=== PATIENT | female | born 1980 | race Two or more races ===

== ENCOUNTER 2024-03-06 21:59 | Inpatient (IN) | payer OTHER, SELFPAY ==
[2024-03-06 22:00] VITALS: BMI 34.0
[2024-03-06 22:19] VITALS: BP 141/90; PULSE 92; RESP 18; TEMP 37.2; O2SAT 95
--- NOTE | 2024-03-06 22:30 | EKG_ITS ---
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
--- NOTE | 2024-03-06 22:30 | XR_ITS ---
Examination: PA lateral chest 2 views Technique: Upright PA lateral chest 2 views Exam date and time: March 06, 2024 1042 hrs. Indications: Chest pain shortness of breath this week Findings: Extensive bilateral lung opacity, severe in the left lung Mild enlargement cardiac contour Significant vascular congestion Suspicious for mild to moderate bilateral pleural effusions Intact osseous structures Impression: Extensive bilateral pneumonia Suspicious for mild associated heart failure
--- NOTE | 2024-03-06 22:30 | PD.EDRME ---
Rapid Medical Screening Exam [facility] Arrival date/time: 03/06/24 21:59 43F with no significant PMH presents to ED with 1 week of worsening cough and SOB. Patient was initially seen for this at [facility] and diagnosed with PNA. Patient was given ABX, unclear if amoxicillin or Augmentin. Patient states she doesn't feel any different. She was also diagnosed with new-onset CHF w/o echo. Cocci pending at time of DC. Chief Complaint: Flu Like Symptoms Vital signs: Vital Signs Temperature 98.9 F 03/06/24 22:19 Pulse Rate 92 03/06/24 22:19 Respiratory Rate 18 03/06/24 22:19 Blood Pressure 141/90 H 03/06/24 22:19 Pulse Oximetry (%) 95 03/06/24 22:19 Oxygen Delivery Method Room Air 03/06/24 22:19
[2024-03-06 22:57] LABS: Basophils % (Auto) 0 % (0-2.5); Eosinophils # (Auto) 0.2 Thou/mm3 (0.0-0.5); Eosinophils % (Auto) 2 % (0-10); Hematocrit 35.7 % (36.0-46.0); Hemoglobin 12.1 g/dL (12.0-16.0); Immature Granulocytes % (Auto) 0 % (0-0); Immature Granulocytes Auto 0.04 Thou/mm3 (0.00-0.00); Lymphocytes # (Auto) 2.3 Thou/mm3 (1.0-4.8); Lymphocytes % (Auto) 22 % (10-50); Mean Corpuscular HGB Conc 33.9 g/dl (31.0-37.0); Mean Corpuscular Volume 88 fL (80-100); Monocytes # (Auto) 0.6 Thou/mm3 (0.0-0.8); Monocytes % (Auto) 6 % (0-12); Neutrophils # (Auto) 7.3 Thou/mm3 (1.8-7.7); Neutrophils % (Auto) 70 % (37-80); Nucleated Red Blood Cell % 0 /100 WBC (0); Platelet Count 353 Thou/mm3 (140-440); RDW Standard Deviation 39.8 fL (36.4-46.3); Red Blood Count 4.04 Miln/mm3 (4.00-5.20); White Blood Count 10.4 Thou/mm3 (3.6-11.0)
[2024-03-06 23:20] LABS: B-Type Natriuretic Peptide < 20 pg/mL (0-100)
[2024-03-06 23:34] LABS: Troponin I < 0.002 ng/mL (0.0-0.045)
[2024-03-06 23:38] LABS: Alanine Aminotransferase 90 U/L (10-49); Albumin, Serum 4.6 gm/dL (3.5-5.0); Albumin/Globulin Ratio 1.4 (1.2-2.2); Alkaline Phosphatase 414 U/L (46-116); Anion Gap 10 (7-16); Aspartate Amino Transferase 66 U/L (0-34); BUN/Creatinine Ratio 15 Ratio (12-20); Bilirubin,Total 1.2 mg/dL (0.3-1.2); Blood Urea Nitrogen 9 mg/dL (9-23); Calcium 9.8 mg/dL (8.3-10.6); Calcium (Corrected) 9.8 mg/dL (8.5-10.1); Carbon Dioxide 26.6 mMol/L (20.0-31.0); Chloride 102 mMol/L (98-107); Creatinine (Component) 0.6 mg/dL (0.6-1.3); Estimated Creatinine Clearance 121.8 mL/min (>60); Globulin 3.4 gm/dL (2.3-3.5); Glucose 106 mg/dL (74-106); Osmolality,Calculated 276 (275-295); Potassium 4.1 mMol/L (3.4-5.1); Sodium 139 mMol/L (136-145); eGFR > 60 See Note
[2024-03-07 06:08] LABS: INR 0.9 (0.9-1.3); Partial Thromboplastin Time 26.9 Seconds (22.0-36.0); Prothrombin Time 9.8 Seconds (9.0-12.2)
--- NOTE | 2024-03-07 07:18 | PC.NURSE ---
CAME TO TRIAGE DESK TO SAY I'VE BEEN HERE SINCE LAST NIGHT AND NO ONE HAS TALKED WITH ME ABOUT MY RESULTS. APOLIGIZED TOPT AND INFORMED THAT NURSE WILL INFORM PROVIDER AND HAVE SOMEONE REVIEW THE RESULTS SOON POSSIBLE
[2024-03-07 08:00] VITALS: BP 130/83; PULSE 82; RESP 18; TEMP 37.1; O2SAT 95
--- NOTE | 2024-03-07 09:19 | PD.EDURI ---
Upper Respiratory Inf. RME/HPI General Chief Complaint: Flu Like Symptoms Stated Complaint: COUGH /SOB X 5DAYS Time Seen by Provider: 03/07/24 03:04 Arrival date/time: 03/06/24 21:59 RME / HPI RME / HPI Narrative: DR. ARZATE MAIN ED EVALUATION: 43 year old female with no past medical history presents to the Emergency Department with complaints of worsening shortness of breath and a persistent cough. Symptoms are moderate. Patient was initially seen for this at [facility] and diagnosed with PNA. Patient was given antibiotics but it is unclear if it was amoxicillin or Augmentin. Patient states she doesn't feel any different. She was also diagnosed with new-onset CHF w/o echo. Cocci pending at time of DC. Related Data Allergies Allergy/AdvReac Type Severity Reaction Status Date / Time No Known Allergies Allergy Verified 03/06/24 22:02 Review of Systems Review of Systems Systems Reviewed: All systems reviewed, normal except as documented Narrative Review of Systems: GEN: No fever, no chills, no weight loss EYES: No discharge, no visual changes, no pain HEENT: No ear pain, no congestion, no sore throat PULM: + shortness of breath, + cough CV: No chest pain, no dyspnea on exertion, no palpitations GI: No nausea, no vomiting, no diarrhea, no pain, no constipation : No frequency, no urgency and no dysuria MUSC/SKEL: No joint pain, no back pain SKIN: No rash PSYCH: No hallucinations, no depression HEME/LYMPH: No easy bleeding or bruising tendencies NEURO: No weakness, no headache Past Medical History Social History SMOKING STATUS: Never smoker SUBSTANCE USE: does not use ALCOHOL: Never ED Exam Narrative Physical exam: GENERAL APPEARANCE: alert and oriented x 4, well-developed, well-nourished, no acute distress VITALS: All vitals were reviewed and the pulse ox is 93% on room air, which is normal according to my interpretation. HEENT: Normocephalic, atraumatic; pupils equal, round, reactive to light; EOMI; mucous membranes pink, moist; oropharynx clear NECK: Supple LUNGS: CTABL; no wheezes, no rales, no rhonchi HEART: Regular rate, regular rhythm; normal S1, S2; no murmurs ABDOMEN: non distended; normal BS; soft, no tenderness, no guarding, no rebound; no masses, no organomegaly, no hernia BACK: no CVA tenderness EXTREMITIES: atraumatic; no edema NEUROLOGIC: awake; alert and oriented x4; cranial nerves II-XII grossly intact; no focal sensory or motor deficits PSYCHIATRIC: appropriate mood and affect SKIN: warm, dry, normal color; no rashes Course Quality Measures none Orders Category Date Time Status Bedside Influenza A&B Antigen Test NOW Care 03/06/24 22:05 Completed EKG (ED ONLY) *Do not use* NOW Care 03/06/24 22:[address] chest wo con Stat Exams 03/07/24 09:18 Completed EKG (ED Only) Stat Exams 03/06/24 22:30 Draft XR chest 2V Stat Exams 03/06/24 22:30 Completed B-Type Natriuretic Peptide Stat Lab 03/06/24 22:37 Completed Blood Culture (Lab) Stat Lab 03/07/24 09:20 Received CBC Stat Lab 03/06/24 22:37 Completed Cocci Serology IgM with reflex to IgG [Cocci Serology, Lab 03/07/24 09:30 Results Unk History] Stat Comprehensive Metabolic Panel Stat Lab 03/06/24 22:37 Completed Lactate (Lactic Acid) Stat Lab 03/07/24 09:30 Completed Legionella Ag, EIA, Urine* Stat Lab 03/07/24 10:01 Received Magnesium Stat Lab 03/06/24 22:37 Completed Partial Thromboplastin Time Stat Lab 03/06/24 22:37 Completed Procalcitonin Stat Lab 03/07/24 09:30 Completed Prothrombin Time with INR Stat Lab 03/06/24 22:37 Completed Troponin I Stat Lab 03/06/24 22:37 Completed Urinalysis Stat Lab 03/07/24 10:01 Completed Urine Culture Stat Lab 03/07/24 10:01 Received Azithromycin Inj [Zithromax Inj] 500 mg Med 03/07/24 14:24 Discontinued Sodium Chloride 0.9% 250 ml [Ns] 250 ml IV X1 cefTRIAXone/D5w 1gm IV premix [Rocephin/D5w 1gm IV Med 03/07/24 14:24 Discontinued premix] 50 ml IV X1 Vital Signs Vital signs: Vital Signs Temperature 98.9 F 03/06/24 22:19 Pulse Rate 92 03/06/24 22:19 Respiratory Rate 18 03/06/24 22:19 Blood Pressure 141/90 H 03/06/24 22:19 Pulse Oximetry (%) 95 03/06/24 22:19 Oxygen Delivery Method Room Air 03/06/24 22:19 Upper Respiratory Infection Patient data External records reviewed:: [facility] previous records (Reviewed last ED visit dated 03/06/24, discharged with the following: intractable pain.) Clinical information provided by:: patient Social determinants that could affect healthcare access:: none Patient has the following chronic illnesses:: Denies any PMHx, surgeries, daily medications, or known allergies. How is presenting disease/condition affected by chronic disease/condition?: no chronic disease Evaluation data The following diagnostics were reviewed and interpreted by me:: lab results, radiology exam(s) and EKG tracing(s) (sinus rhythm, rate 95, QTc 453,) Lab and/or radiology exams considered but not ordered:: none Interpretation Summary: Procedure(s): CT chest wo con Accession Number(s): [id number] cc: Deniz Rider MD; NO PRIMARY/FAMILY,PHYSICIAN; Britney Arzate MD~ Examination: CT chest, without intravenous contrast. Sagittal and coronal 2-D reconstructions. Exam date and time: March 07, 2024 1052 hours INDICATIONS: Increasing chest pain shortness of breath beginning 2 days ago, extensive bilateral pneumonia on chest film yesterday CTDI:vol (mGy) 15.6 DLP: (mGycm) 573 Technique: Multiple 3.0 mm axial sections of the chest to been obtained. Bone and lung density settings are obtained. Sagittal and coronal 2-D reconstructions have been obtained. Low dose protocols were performed. One or more of the following dose reduction techniques were used; automated exposure control, adjustment of the mA and/or KV according to patient size, use of iterative reconstruction technique. Findings: No thoracic aortic aneurysm dilatation Pulmonary artery segments do not appear enlarged Pericardial effusion on the right side measuring up to 20 mm in thickness Mild prominence left ventricle Extensive bilateral lung opacity consistent with pneumonia, multiple subcentimeter right lung pulmonary nodules, the largest 6 mm Moderate left mild right pleural fluid No focal visualized liver lesion Contracted gallbladder No splenic or pancreatic lesion Kidneys partially visualized no hydronephrosis Multiple osteolytic lesions involving thoracic vertebral bodies as well as the manubrium of the sternum as well as bilateral ribs IMPRESSION: Extensive bilateral pneumonia Significant pericardial effusion Recommend repeating this study with intravenous contrast to exclude mediastinal lymphadenopathy as well as to exclude pulmonary mass lesion in the left upper lobe Moderate left mild right pleural fluid Widespread osteolytic lesions, consider osseous metastatic disease, round cell tumor such as multiple myeloma Consider PET CT scan follow-up for staging Consider MRI thoracic cervical and lumbar spine post intravenous contrast follow-up to exclude spinal cord compression, as clinically warranted Dictated By: Deniz Rider MD Procedure(s): XR chest 2V Accession Number(s): [id number] cc: Deniz Rider MD; Logan Calderón PA-C; Temporary Provider,ED ~ Examination: PA lateral chest 2 views Technique: Upright PA lateral chest 2 views Exam date and time: March 06, 2024 1042 hrs. Indications: Chest pain shortness of breath this week Findings: Extensive bilateral lung opacity, severe in the left lung Mild enlargement cardiac contour Significant vascular congestion Suspicious for mild to moderate bilateral pleural effusions Intact osseous structures Impression: Extensive bilateral pneumonia Suspicious for mild associated heart failure Dictated By: Deniz Rider MD Medications / Prescriptions Medications or Prescriptions considered but not ordered:: none Medication administrations:: Medication Administration History Acetaminophen (Acetaminophen 325 Mg Tablet) 650 mg PO Q6H PRN PRN Reason: Fever >101.5 Stop: 04/06/24 15:17 Acetaminophen (Acetaminophen 325 Mg Tablet) 650 mg PO Q6H PRN PRN Reason: PAIN SCALE 1-3 (mild Stop: 04/06/24 15:17 Hydrocodone Bitart/Acetaminophen (Hydrocodone/Apap 10/325 Tab) 1 tab PO Q4H PRN PRN Reason: PAIN SCALE 4-6 (Moderate Stop: 03/12/24 15:17 Hydromorphone HCl (Hydromorphone Inj 2 Mg/Ml Vial) 1 mg IVP Q4HR PRN PRN Reason: PAIN Stop: 03/12/24 15:17 Ceftriaxone Sodium/Dextrose (Rocephin/D5w 1gm Iv Premix) 50 mls @ 100 mls/hr IV QDAY [facility] Stop: 03/15/24 08:59 Azithromycin 500 mg/ Sodium (Chloride) 250 mls @ 250 mls/hr IV QDAY ANSELMO Stop: 03/15/24 08:59 Ondansetron HCl (Ondansetron Inj 2 Mg/Ml Inj 2 Ml) 4 mg IV Q6H PRN; Protocol PRN Reason: NAUSEA OR VOMITING Stop: 04/06/24 15:17 Discontinued Medications Enoxaparin Sodium (Enoxaparin Sod Inj 40 Mg/0.4 Ml Syringe) 40 mg SC QDAY ANSELMO Stop: 03/21/24 15:29 Ceftriaxone Sodium/Dextrose (Rocephin/D5w 1gm Iv Premix) 50 mls @ 100 mls/hr IV X1 ONE Stop: 03/07/24 14:53 Azithromycin 500 mg/ Sodium (Chloride) 250 mls @ 250 mls/hr IV X1 ONE Stop: 03/07/24 15:23 see above Consultations Consultation(s) initiated? (list below): Yes Consultation #1 (Physician, Specialty, Details): Discussed test HPI, PMHx, lab, radiology results and/or management with hospitalist. Will admit for further evaluation and management. Accepts patient for admission. Time: 15:15 Diagnosis Upper Respiratory Differential Diagnosis: upper respiratory infection, viral infection and influenza Most likely diagnosis given after review of the tests above:: As noted below. Admission Indicated Admission indicated?: indicated Admission Request Was there a request for admission?: Yes Admission Attestation Admission request attestation: Discussed case with [] from Hospitalist service regarding admission. Discussed patients ED course, exam findings, labs, and radiology results. The Hospitalist [agrees,declines] to accept the patient for admission. Disposition Plan Disposition Plan: Admit
[2024-03-07 09:43] LABS: Lactate (Lactic Acid) 0.8 mMol/L (0.4-2.0)
[2024-03-07 10:11] LABS: Collection Type, Urine Clean Catch
[2024-03-07 10:16] LABS: Bilirubin,Urine Negative (Negative); Blood,Urine Negative (Negative); Color,Urine Yellow (Lt Yel-Yel); Glucose, Urine Negative (Negative); Ketones,Urine Negative (Negative); Leukocyte Esterase,Urine Positive (Negative); Nitrite,Urine Negative (Negative); Protein,Urine Trace (Neg - Trace); RBC,Urine 10 /hpf (0-3); Specific Gravity,Urine 1.022 (1.001-1.035); Squamous Epithelial Cell,Urine 4 /hpf (0-5); Urobilinogen,Urine Negative mg/dL (0.0-1.0); WBC,Urine 3 /hpf (0-5)
[2024-03-07 10:22] LABS: Procalcitonin 0.06 ng/ml (0.0-0.49)
[2024-03-07 10:39] LABS: Clarity,Urine Hazy (Clear/Hazy)
[2024-03-07 14:01] LABS: Cocci Serology, IgM Negative (Negative)
--- NOTE | 2024-03-07 15:18 | ECHO_ITS ---
Transthoracic Echo Report Ht (in): 62 Wt (lb): 186 Exam Location: ER Status: Emergency Instrumentation Supervisor: Lu Ross Indications: Procedure Performed: BP: 130 / 83 HR: 82 Rhythm: Sinus Technical Quality: Fair MEASUREMENTS (Male / Female) Normal Values 2D ECHO LV Diastolic Diameter PLAX 4.8 cm 4.2 - 5.9 / 3.9 - 5.3 cm LV Systolic Diameter PLAX 3.2 cm IVS Diastolic Thickness 0.9 cm 0.6 - 1.0 / 0.6 - 0.9 cm LVPW Diastolic Thickness 0.7 cm 0.6 - 1.0 / 0.6 - 0.9 cm LV Relative Wall Thickness 0.3 LVOT Diameter 2.1 cm LA Volume Index 24.8 cm?/m? 16 - 28 cm?/m? Ascending Aorta Diameter 3.2 cm M-MODE Aortic Root Diameter MM 3.1 cm LA Systolic Diameter MM 3.9 cm LA Ao Ratio MM 1.3 AV Cusp Separation MM 1.9 cm DOPPLER AV Peak Velocity 141.0 cm/s AV Peak Gradient 8.0 mmHg AV Mean Gradient 4.0 mmHg AV Velocity Time Integral 26.2 cm LVOT Peak Velocity 118.0 cm/s LVOT Peak Gradient 5.6 mmHg LVOT Velocity Time Integral 21.9 cm LVOT Cardiac Index 3176.4 cm?/min?m? AV Area Cont Eq vti 2.9 cm? AV Area Cont Eq pk 2.9 cm? MV Peak Velocity 83.2 cm/s MV Peak Gradient 2.8 mmHg MV Mean Velocity 57.9 cm/s MV Mean Gradient 2.0 mmHg MV Area PHT 4.1 cm? Mitral E Point Velocity 66.5 cm/s Mitral A Point Velocity 79.5 cm/s Mitral E to A Ratio 0.8 LV E' Lateral Velocity 7.7 cm/s Mitral E to LV E' Lateral Ratio 8.6 LV E' Septal Velocity 6.7 cm/s Mitral E to LV E' Septal Ratio 9.9 FINDINGS Left Ventricle Normal left ventricular size, wall thickness, systolic function with no obvious regional wall motion abnormalities. The ejection fraction is visually estimated at 55-60%. Right Ventricle The right ventricle is normal in size and systolic function. Left Atrium The left atrium is normal by two-dimensional, color flow and Doppler imaging with no structural abnormalities, no thrombus formation present. Right Atrium The right atrium is normal by two-dimensional imaging, color flow and Doppler imaging with no struct ural abnormalities, no thrombus formation present. Atrial Septum The interatrial septum appears normal with no evidence of a shunt. Aorta The aorta is normal by two-dimensional, color flow and Doppler interrogation. Mitral Valve The mitral valve is normal by two-dimensional, color flow and Doppler interrogation. There is trace mitral valve regurgitation. Aortic Valve The aortic valve is trileaflet and normal by two-dimensional, color flow and Doppler interrogation. There is no significant aortic valve regurgitation. Tricuspid Valve The tricuspid valve is normal by two-dimensional, color flow and Doppler interrogation. There is tra ce tricuspid valve regurgitation. Pulmonic Valve The pulmonic valve is not well visualized. There is no significant pulmonic valve regurgitation. Vessels The pulmonary artery appears normal. The inferior vena cava pulmonary and hepatic veins appear pedro l. Pericardium The pericardium is normal by two-dimensional imaging. There is a small circumferential pericardial effusion. No evidence of cardiac tampoande. Other Findings Pleural effusion present. CONCLUSIONS Normal LV size and function. Estimated EF 55-60% Normal RV size and function. There is a small circumferential pericardial effusion. Not enough to warrant intervention No evidence of cardiac tampoande. Pleural effusion present. Cherri Snow (Electronically Signed) Final Date: 07 March 2024 20:23
--- NOTE | 2024-03-07 15:27 | ESHP_ITS ---
<Statement entered by Jamie Baptiste MD - 03/12/24 14:16> I reviewed above note and agree with findings and plans. I have also personally examined the patient with medicine team and went over assessment and plan with medical team including global marketing intern and resident physician. Documentation for date of: 03/07/24 HPI History of Present Illness History of present illness: 43-year-old female without significant past medical history who presented to the ED with a chief complaint of severe thoracic pain. Patient states that for the past 2 months she has been having dry cough that has progressively been worsening, during this time she has also has had progressively worsening body pain and weakness, predominantly on legs, spine, ribs. Patient denies night sweats, or fever. Approximately 1 week ago after an episode of severe coughing. She felt severe left-sided thoracic pain and mid back pain. Patient describes pain as severe 10 out of 10, worsens with deep inspiration and limits her breathing, she is unable to lay flat, and is barely able to move. Due to the symptoms patient went to a hospital in [place] where she got an injection for pain without symptom relief. Due to patient's symptoms not going away and worsening she decided to come to the ED. Patient has also noticed loss of appetite and weight loss, however she has been under Ozempic for weight loss she as she was scheduled to have a knee replacement surgery. ED course: On arrival patient's vitals within normal limits, saturating adequately on room air, pertinent labs: Alkaline phosphatase 414, AST 66, ALT 90. Rest of labs within normal limits. CT chest was done which showed: Extensive bilateral pneumonia, significant pericardial effusion, Recommend repeating this study with intravenous contrast to exclude mediastinal lymphadenopathy as well as to exclude pulmonary mass lesion in the left upper lobe. Moderate left mild right pleural fluid. Widespread osteolytic lesions, consider osseous metastatic disease, round cell tumor such as multiple myeloma. Consider PET CT scan follow-up for staging. Consider MRI thoracic cervical and lumbar spine post intravenous contrast follow-up to exclude spinal cord compression, as clinically warranted. Patient will be admitted for management of intractable pain, likely in the setting of malignancy. PMH: As above Social: No alcohol tobacco or drugs Review of Systems Review of Systems Systems Reviewed: All systems reviewed, normal except as documented Exam Vital Signs Temp Pulse Resp BP Pulse Ox O2 Del Method 98.7 F 82 18 130/83 95 Room Air 03/07/24 08:00 03/07/24 08:00 03/07/24 08:00 03/07/24 08:00 03/07/24 08:00 03/07/24 08:00 Narrative Exam GENERAL: Awake, alert and oriented. In distress due to pain, unable to take deep breaths HEENT: Normocephalic, atraumatic and nontender.? Pupils are equal and reactive to light and accommodation.? Oral mucosa moist. NECK: Supple without adenopathy. Traquea midline. Nontender, carotid pulse 2+ bilaterally without bruits, no JVD.? CHEST: Heart rate and rythm normal, no murmurs, gallops auscultated. S1 & 2 normal insensity. Nontender on palpation, no deformity and no crepitus. LUNGS: Lung sounds are clear.? No wheezing, rales or ronchi.? No intercostal subcostal retraction. Room air ABDOMEN: Soft,symmetric , nontender, no guarding or rebound tenderness. No abnormal masses palpated.? ? Bowel sounds are normoactive in all 4 quadrants. EXTREMITIES: Nontender.? No pitting edema.? No cyanosis.? Patient is able to move all 4 extremities. SKIN: No rashes noted. NEURO:? Cranial nerves intact.? There is no focalization.? GCS is 15. Results: Labs 03/06/24 22:37 03/06/24 22:37 Labs: Short CBC 03/06/24 Range/Units 22:37 WBC 10.4 (3.6-11.0) Thou/mm3 Hgb 12.1 (12.0-16.0) g/dL Hct 35.7 L (36.0-46.0) % Plt Count 353 (140-440) Thou/mm3 BMP 03/06/24 22:37 Sodium 139 Potassium 4.1 Chloride 102 Carbon Dioxide 26.6 BUN 9 Creatinine 0.6 Glucose 106 Calcium 9.8 Cardiac Enzymes 03/06/24 Range/Units 22:37 Troponin I < 0.002 (0.0-0.045) ng/mL Liver Function 03/06/24 Range/Units 22:37 Total Bilirubin 1.2 (0.3-1.2) mg/dL AST 66 H (0-34) U/L ALT 90 H (10-49) U/L Alkaline Phosphatase 414 H (46-116) U/L Albumin 4.6 (3.5-5.0) gm/dL Urine 03/07/24 Range/Units 10:01 Urine Color Yellow (Lt Yel-Yel) Urine Clarity Hazy (Clear/Hazy) Urine pH 6.0 (5.0-7.0) Ur Specific [place] 1.022 (1.001-1.035) Urine Protein Trace (Neg - Trace) Urine Glucose (UA) Negative (Negative) Quality Measures Quality Measures VTE prophylaxis Medications Home Medications and Allergies Allergies Allergy/AdvReac Type Severity Reaction Status Date / Time No Known Allergies Allergy Verified 03/06/24 22:02 Visit Medications Acetaminophen (Acetaminophen 325 Mg Tablet) 650 mg PO Q6H PRN PRN Reason: Fever >101.5 Stop: 04/06/24 15:17 Acetaminophen (Acetaminophen 325 Mg Tablet) 650 mg PO Q6H PRN PRN Reason: PAIN SCALE 1-3 (mild Stop: 04/06/24 15:17 Hydrocodone Bitart/Acetaminophen (Hydrocodone/Apap 10/325 Tab) 1 tab PO Q4H PRN PRN Reason: PAIN SCALE 4-6 (Moderate Stop: 03/12/24 15:17 Enoxaparin Sodium (Enoxaparin Sod Inj 40 Mg/0.4 Ml Syringe) 40 mg SC QDAY ANSELMO Stop: 03/21/24 15:29 Hydromorphone HCl (Hydromorphone Inj 2 Mg/Ml Vial) 1 mg IVP Q4HR PRN PRN Reason: PAIN Stop: 03/12/24 15:17 Ceftriaxone Sodium/Dextrose (Rocephin/D5w 1gm Iv Premix) 50 mls @ 100 mls/hr IV QDAY ANSELMO Stop: 03/15/24 08:59 Azithromycin 500 mg/ Sodium (Chloride) 250 mls @ 250 mls/hr IV QDAY ANSELMO Stop: 03/15/24 08:59 Ondansetron HCl (Ondansetron Inj 2 Mg/Ml Inj 2 Ml) 4 mg IV Q6H PRN; Protocol PRN Reason: NAUSEA OR VOMITING Stop: 04/06/24 15:17 Discontinued Medications Ceftriaxone Sodium/Dextrose (Rocephin/D5w 1gm Iv Premix) 50 mls @ 100 mls/hr IV X1 ONE Stop: 03/07/24 14:53 Azithromycin 500 mg/ Sodium (Chloride) 250 mls @ 250 mls/hr IV X1 ONE Stop: 03/07/24 15:23 Assessment & Plan Plan 43-year-old female without significant past medical history who presented to the ED with a chief complaint of severe thoracic pain, CT chest was done which showed: Extensive bilateral pneumonia, significant pericardial effusion, Recommend repeating this study with intravenous contrast to exclude mediastinal lymphadenopathy as well as to exclude pulmonary mass lesion in the left upper lobe. Moderate left mild right pleural fluid. Widespread osteolytic lesions, consider osseous metastatic disease, round cell tumor such as multiple myeloma. Consider PET CT scan follow-up for staging. Consider MRI thoracic cervical and lumbar spine post intravenous contrast follow-up to exclude spinal cord compression, as clinically warranted. Patient will be admitted for management of intractable pain, likely in the setting of malignancy. # Intractable pain # Suspected malignancy, unknown primary #Pleural effusion -Likely in the setting of malignancy, unknown primary, refers 2 months dry cough and bone pain -CT chest showed multiple osteolytic lesions, suggestive of malignancy, as well as pericardial and pleural effusion. -Follow-up chest abdomen pelvis with contrast -Oncology Dr Curry consulted, appreciate recommendations -Thoracentesis ordered, follow up fluid analysis and cytology. -Pain regimen #Pericardial effusion #Suspected heart failure -Per patient she has been told that she has heart failure, however she is unsure if she has had echocardiogram, patient refers she is unable to lay flat but mostly because of pain, she denies lower extremity edema -Follow-up echocardiogram -Cardiology consulted Dr. Mcdonnell, appreciate recommendations #Bilateral pneumonia -As evidenced on CT -Currently on room air, afebrile, no white count -Azithromycin and Rocephin Disposition: Admitted to med telemetry due to intractable pain in the setting of suspected malignancy Diet and fluids: Regular DVT prophylaxis: Heparin GI prophylaxis: None CODE STATUS: Full code [place]: None Lines: Peripheral Patient's care discussed with attending physician, Dr Emile Almendarez MD PGY3
--- NOTE | 2024-03-07 15:41 | XR_ITS ---
Examination: CT chest with intravenous contrast CT abdomen with intravenous contrast CT pelvis with intravenous contrast 2-D coronal and sagittal reconstructions Time of exam: March 07, 2023 at 1706 hrs. Indications: Epigastric pain beginning 2 days ago, extensive parenchymal disease in the lungs and possible mass in the left upper lobe on noncontrast CT chest March 07, 2024 10:54 AM CTDI: vol (mGy) : 26.5 DLP: (mGycm): 1121 Technique: Multiple axial images of the chest, abdomen and pelvis with intravenous contrast, 3.0 mm slice thickness. Images obtained post intravenous injection Isovue 370 60 cc. 2-D sagittal and coronal reconstructions. Low dose protocols were performed. One or more of the following dose reduction techniques were used; automated exposure control, adjustment of the mA and/or KV according to patient size, use of iterative reconstruction technique. Findings: Dense consolidation versus pulmonary mass in the left upper lobe, 9.6 x 5.1 x 9.2 cm No thoracic aortic aneurysm dilatation No pulmonary artery emboli Pneumonia and atelectasis in the left lower lobe Significant left pleural fluid Mild right pleural fluid Moderate vascular congestion Subcentimeter pulmonary nodules No focal liver or splenic lesions Contracted gallbladder No pancreatic or adrenal mass No hydronephrosis or ureteral calculi Aorta normal size Normal appendix No bowel obstruction No pelvic mass Urinary bladder intact Again noted multiple osteolytic lesions involving thoracic vertebral bodies, manubrium, lumbar vertebral bodies, bilateral ribs, right humeral head, right scapula left transverse processes and pedicles L2, L3, right pedicle L4, bilateral iliac bones bilateral sacral segments, anterior right acetabulum Impression: 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
[2024-03-07 15:51] VITALS: BP 123/79; PULSE 82; RESP 18; TEMP 37.3; O2SAT 93
[2024-03-07 16:35] VITALS: PULSE 85
[2024-03-07] MEDS: cefTRIAXone/D5w 1gm IV premix 50 ML IV (16:53)
[2024-03-07] MEDS: AZITHROMYCIN INJ 500 MG in SODIUM CHLORIDE 0.9% 250 ML 250 ML 250 MG IV (18:03)
[2024-03-07 19:02] VITALS: BP 142/90; PULSE 80; RESP 17; TEMP 36.9; O2SAT 96
--- NOTE | 2024-03-07 19:12 | PC.NURSE ---
Telephone report received from CALLI Garcia in ED.
[2024-03-07 19:16] VITALS: BMI 30.9
[2024-03-07 20:00] VITALS: BP 141/82; PULSE 82; RESP 36; TEMP 37; O2SAT 91
--- NOTE | 2024-03-07 20:33 | PC.NURSE ---
Dr. Swann made aware that the echocardiogram ultrasound reported that the patient had pleural effusion present.
[2024-03-07 23:49] VITALS: PULSE 83
[2024-03-08] VITALS (16 sets, daily range): BP systolic 114–161; BP diastolic 64–111; PULSE 71–100; RESP 17–32; TEMP 36.3–36.7; O2SAT 92–100
--- NOTE | 2024-03-08 | XR_ITS ---
Examination: MRI lumbar spine with intravenous contrast Technique: Multiple axial sagittal MR images post intravenous administration 50 cc gadolinium Exam date and time: March 08, 2024 1730 hrs. Indications: Generalized body weakness leg weakness this week, widespread osteolytic disease involving the vertebral bodies on CT chest abdomen pelvis study today Findings: Abnormal enhancement involving all lumbar vertebral bodies as well as posterior iliac bones and bilateral sacral segments as well as S1 Subtle enhancing epidural tumor posterior to the vertebral bodies, most prominent 2 mm at the L5 level but no definite conus medullaris or cauda equina impingement at this time at the lumbar levels However at the S2 level there appears to be epidural tumor impinging upon the nerve roots, sagittal image 9 Impression: Widespread osseous metastatic disease Early enhancing epidural tumor posterior to the lumbar vertebral bodies At the S2 level there appears to be enhancing tumor impinging upon the nerve roots, sagittal image 9
--- NOTE | 2024-03-08 | XR_ITS ---
Examination: MRI cervical spine with intravenous contrast Technique: Axial sagittal MRI images post intravenous ministration 13 cc gadolinium Exam date and time: May 06, 2024 1730 hrs. Indications: Generalized body pain leg weakness, CT chest abdomen pelvis March 08, 2024 widespread osteolytic lesions including cervical thoracic and lumbar vertebral bodies Findings: Adequate alignment cervical vertebral bodies Abnormal areas of enhancement replacing the C2 vertebral body extending into the bilateral pedicles and laminae at the C2 level, abnormal enhancement also at the base of the odontoid, smaller areas of abnormal enhancement C4, C5, C6 T1 Epidural tumor enhancement posterior to the cervical vertebral bodies, most prominent at the C2 level measuring up to 3 mm No cervical cord compression at this time Impression: Significant osseous metastatic disease cervical spine, more severe involving C2 vertebral body Epidural tumor enhancement posterior to the vertebral bodies most prominent at the C2 level 3 mm in thickness but no current cervical cord compression
--- NOTE | 2024-03-08 | XR_ITS ---
Examination: MRI thoracic spine with intravenous contrast Exam date and time: March 08, 2024 at 1755 hrs. Indications: Back pain and leg weakness this week, extensive osteolytic lesions involving vertebral bodies on the CT chest abdomen pelvis study today Technique an findings: Multiple axial sagittal MR images thoracic spine Multiple abnormal enhancing lesions involving thoracic vertebral bodies including T12, T11, T10, T9, T8, T7, T4, T2, T1 However, on this study no abnormal epidural enhancing tumor impinging upon the thoracic cord Impression: Widespread osseous metastatic disease No thoracic cord compression
--- NOTE | 2024-03-08 | XR_ITS ---
Examination: MRI of brain with intravenous contrast Technique: Multiple axial sagittal coronal brain MRI images post intravenous administration 15 cc gadolinium Indications: CT chest abdomen pelvis March 07, 2024 pulmonary mass left upper lobe, multiple osteolytic lesions throughout osseous structures, staging Exam date and time: March 08, 2024 1730 hrs. Findings: Diffuse enhancing metastatic lesions 3 to 12 mm in the bilateral frontal lobes parietal lobes temporal lobes as well as left cerebellar hemisphere No mass effect upon the ventricular system Pituitary is not enlarged Impression: Numerous cerebral metastatic lesions Single left cerebellar metastatic lesion
--- NOTE | 2024-03-08 00:18 | PC.NURSE ---
Patient placed on 2L nasal cannula due to SOB with a respiration of 28. Dr. Swann made aware.
[2024-03-08] MEDS: ALBUTEROL/IPRATROPIUM (Duoneb) RT SOL 3 ML NEBU INH ×3 (01:42→19:32)
[2024-03-08 05:48] LABS: Basophils % (Auto) 0 % (0-2.5); Eosinophils # (Auto) 0.1 Thou/mm3 (0.0-0.5); Eosinophils % (Auto) 2 % (0-10); Hematocrit 31.7 % (36.0-46.0); Hemoglobin 10.7 g/dL (12.0-16.0); Immature Granulocytes % (Auto) 0 % (0-0); Immature Granulocytes Auto 0.03 Thou/mm3 (0.00-0.00); Lymphocytes # (Auto) 1.7 Thou/mm3 (1.0-4.8); Lymphocytes % (Auto) 22 % (10-50); Mean Corpuscular HGB Conc 33.8 g/dl (31.0-37.0); Mean Corpuscular Hemoglobin 30.1 pg (25.0-35.0); Mean Corpuscular Volume 89 fL (80-100); Monocytes # (Auto) 0.5 Thou/mm3 (0.0-0.8); Monocytes % (Auto) 7 % (0-12); Neutrophils # (Auto) 5.3 Thou/mm3 (1.8-7.7); Neutrophils % (Auto) 69 % (37-80); Nucleated Red Blood Cell % 0 /100 WBC (0); Platelet Count 317 Thou/mm3 (140-440); RDW Standard Deviation 40.3 fL (36.4-46.3); Red Blood Count 3.55 Miln/mm3 (4.00-5.20); White Blood Count 7.7 Thou/mm3 (3.6-11.0)
[2024-03-08 06:16] LABS: Anion Gap 9 (7-16); BUN/Creatinine Ratio 20 Ratio (12-20); Blood Urea Nitrogen 10 mg/dL (9-23); Calcium 9.5 mg/dL (8.3-10.6); Carbon Dioxide 26.6 mMol/L (20.0-31.0); Chloride 103 mMol/L (98-107); Creatinine (Component) 0.5 mg/dL (0.6-1.3); Estimated Creatinine Clearance 139.2 mL/min (>60); Glucose 94 mg/dL (74-106); Magnesium 1.9 mg/dL (1.6-2.6); Osmolality,Calculated 276 (275-295); Phosphorous 5.2 mg/dL (2.4-5.1); Potassium 3.6 mMol/L (3.4-5.1); Sodium 139 mMol/L (136-145); eGFR > 60 See Note
--- NOTE | 2024-03-08 07:15 | PC.NURSE ---
Recvd order for ct thoracentesis, informed Christy Rn order needs to be changed to Ultrasound Thoracentesis per Dr. Rider only if ordering MD still wants procedure done.
--- NOTE | 2024-03-08 07:35 | ESCONSULT_ITS ---
HPI Data of Consult Consult date: 03/08/24 Requesting Physician: Jamie Baptiste MD Primary Care Provider: Physician No Primary/Family Consult Narrative Reason for consult: Suspected malignancy involving lung History of present illness: Patient is a 43-year-old non-smoking lady from [facility] admitted with significant back pain. Chest CT revealed extensive bilateral pneumonia significant pericardial effusion and widespread osteolytic lesions. Chest abdomen pelvis done with contrast 03/07/24 revealed pulmonary mass left upper lobe 9.6 x 5.1 x 9.2 cm along with bilateral pleural fluid metastatic pulmonary nodules and widespread osseous metastatic disease involving thoracic lumbar pelvic bones. Current labs reveal WBC 7.7 hemoglobin 10.7 AST ALT alk phos moderately elevated. Thoracentesis of pleural fluid has been ordered. Currently on opioids and antibiotics with some relief of symptoms. Patient referred for oncological consultation. cc:: cc: Jamie Baptiste MD Past Medical History Social History SOCIAL: Denies smoking Slov[place]-speaking lives in [place] near [place] SMOKING STATUS: Never smoker Past Medical History Comments PMH COMMENT: Followed in [place] for pneumonia CHF Meds Home Medications and Allergies Allergies Allergy/AdvReac Type Severity Reaction Status Date / Time No Known Allergies Allergy Verified 03/06/24 22:02 Exam Vital Signs Temp Pulse Resp BP Pulse Ox O2 Del Method O2 Flow Rate 97.7 F 81 26 H 129/86 H 99 Nasal Cannula 2 03/08/24 04:00 03/08/24 06:56 03/08/24 06:56 03/08/24 04:00 03/08/24 06:56 03/08/24 04:00 03/08/24 06:56 Narrative Exam Lying comfortably in no acute distress. Results Labs 03/08/24 04:41 03/08/24 04:41 Labs: Short CBC 03/08/24 Range/Units 04:41 WBC 7.7 (3.6-11.0) Thou/mm3 Hgb 10.7 L (12.0-16.0) g/dL Hct 31.7 L (36.0-46.0) % Plt Count 317 D (140-440) Thou/mm3 BMP 03/08/24 04:41 Sodium 139 Potassium 3.6 D Chloride 103 Carbon Dioxide 26.6 BUN 10 Creatinine 0.5 L Glucose 94 Calcium 9.5 Urine 03/07/24 Range/Units 10:01 Urine Color Yellow (Lt Yel-Yel) Urine Clarity Hazy (Clear/Hazy) Urine pH 6.0 (5.0-7.0) Ur Specific [place] 1.022 (1.001-1.035) Urine Protein Trace (Neg - Trace) Urine Glucose (UA) Negative (Negative) Assessment and Plan Additional Assessment & Plan Additional Plan: 1. Prominent left upper lobe mass with metastatic appearing pulmonary nodules and bony lesions involving thoracolumbar areas and pelvis. 2. Experiencing significant pain alleviated with current pain meds. 3. Shall order cervical thoracic lumbar MRI to rule out any spinal cord involvement. 4. Thoracentesis of pleural fluid ordered, recommend cytology added to the sample testing, although likely will eventually need lung tumor tissue biopsy to allow for molecular studies for possible immunotherapy or targeted therapy. 4, Due to the round cell appearance of bony lesions shall also order SPEP immunofixation 6. Thank you for allowing me to evaluate this patient.
--- NOTE | 2024-03-08 07:42 | XR_ITS ---
Examination: Ultrasound right hemithorax Ultrasound left hemithorax Exam date and time: March 08, 2024 0944 hours INDICATIONS: Shortness of breath this week Technique and findings: Grayscale sonographic images right and left hemithoraces Minimal bilateral pleural fluid IMPRESSION: Minimal bilateral pleural fluid
--- NOTE | 2024-03-08 08:14 | XR_ITS ---
Examination: CT guided percutaneous biopsy pulmonary mass left upper lobe CT thorax without intravenous contrast Date and time of procedure: March 08, 2024 1336 hours INDICATIONS: Left upper lobe pulmonary mass on CT chest study March 07, 2024 Informed consent provided. A timeout was completed verifying correct patient, procedure, site and positioning. Technique: Axial 3 mm sections were obtained for localization of the mass like area in the left upper lobe Appropriate area is marked. The patient's site was prepped and draped in sterile fashion Maximal sterile barrier technique utilized, including hand hygiene Local anesthesia was obtained with 1% lidocaine. Low dose protocols were performed. One or more of the following dose reduction techniques were used; automated exposure control, adjustment of the mA and/or KV according to patient size, use of iterative reconstruction technique. Single biopsy performed, small pneumothorax noted under CT fluoroscopic images precluded further biopsies Patient appears in stable condition during this procedure. At completion of the procedure, the patient is in satisfactory condition. Estimated blood loss 0 cc Complete pathology report to follow. Impression: CT-guided percutaneous biopsy masslike area in the left upper lobe as above
[2024-03-08] MEDS: cefTRIAXone/D5w 1gm IV premix 50 ML IV (08:17)
[2024-03-08] MEDS: AZITHROMYCIN INJ 500 MG in SODIUM CHLORIDE 0.9% 250 ML 250 ML 250 MG IV (08:59)
[2024-03-08 09:58] LABS: Partial Thromboplastin Time 27.6 Seconds (22.0-36.0); Prothrombin Time 11.4 Seconds (9.0-12.2)
--- NOTE | 2024-03-08 10:14 | PC.SS ---
Follow up note: Pt is on IV antibiotic. Pt is on 2 liters of O2. Pt will return home upon dc.
[2024-03-08 10:50] LABS: Carcinoembryonic Antigen 14.3 ng/mL (0.0-5.0)
--- NOTE | 2024-03-08 11:40 | PC.SS ---
SS met with patient regarding her d/c plan. Pt is alert/oriented. Pt was admitted for Intractable Pain. Pt confirmed demographic and contact information is correct on facesheet. Pt resides with kids. Pt ambulates independently without assistance or DME. Pt is ok with all ADLs. Pt named her son, Ryder Barone, phone# [phone] medical decision maker if she is unable. Patient?s choice is to return home upon d/c. Pt states not diabetic and is not on dialysis. Pt does not utilizes O2 at home. Pt is currently on 2 liters of O2. Pt states she had a scheduled appointment with PCP for today but will have to reschedule. D/C plan: Return home Next of Kin: Carri Barone, son, phone# [phone] PCP: Dr. Abram Rodrigues from [facility] in [place] Address: Correct on facesheet
[2024-03-08 12:20] LABS: Cocci Serology, IgG Negative (Negative)
--- NOTE | 2024-03-08 13:44 | ESPR_ITS ---
<Statement entered by Jamie Baptiste MD - 03/12/24 14:17> I reviewed above note and agree with findings and plans. I have also personally examined the patient with medicine team and went over assessment and plan with medical team including creative intern and resident physician. Documentation for date of: 03/08/24 Subjective Subjective Interval history: Patient seen at bedside today. Patient and her children at bedside were informed in regards to the likelihood of her malignancy. Explained to the patient that currently we are still in the diagnostic phase but the suspicion remains high due to the CT findings. Patient was later sent down to IR for CT- guided biopsy of lung mass along with thoracentesis of the pleural fluid with analysis. Will attempt to obtain outpatient oncology referral. Reviewed images reports minimal pleural fluid with apical pneumothorax, spoke to radiology, states if patient has no symptoms and clinically stable, no need for further interventions at this point in time. Spoke to slip operator, Dr. Landis, states no need for chest tube at this time if patient is clinically stable, and order chest CT, for further monitoring. Post-procedure patient is hemodynamically stable at this time is speaking full sentences and denies chest pain, shortness of breath, dyspnea at this time. Exam Vital Signs Temp Pulse Resp BP Pulse Ox O2 Del Method O2 Flow Rate 98.0 F 92 20 132/89 H 96 Room Air 2 03/08/24 12:19 03/08/24 12:19 03/08/24 12:19 03/08/24 12:19 03/08/24 12:19 03/08/24 12:19 03/08/24 08:00 Narrative Exam Physical Exam GENERAL: NAD, hemodynamically, AAOx3 HEENT: Moist mucosa. Eyes open, symmetrical, & clear CARDIO: Heart RRR, no obvious murmurs PULM: No noted coughing/dyspnea CTA B/L, no R/W/R GI: Abdomen soft, nondistended, no pain on palpation. BSx4 SKIN/MSK/EXT: No wounds/rashes/edema/amputations, no pain on palpation. Pedal pulses present B/L NEURO: AAOx3, no focal neuro deficits, able to move all 4 extremities Objective Labs 03/08/24 04:41 03/08/24 04:41 Labs: Laboratory Results - last 24 hr 03/07/24 03/08/24 03/08/24 09:30 04:41 09:15 WBC 7.7 RBC 3.55 L Hgb 10.7 L Hct 31.7 L MCV 89 MCH 30.1 MCHC 33.8 RDW Std Deviation 40.3 Plt Count 317 D Neut % (Auto) 69 Lymph % (Auto) 22 [place] % (Auto) 7 Eos % (Auto) 2 Baso % (Auto) 0 Neut # (Auto) 5.3 Lymph # (Auto) 1.7 [place] # (Auto) 0.5 Eos # (Auto) 0.1 Baso # (Auto) 0.0 Immature Gran # (Auto) 0.03 H Absolute Nucleated RBC 0.00 Immature Gran % 0 Nucleated RBC % 0 PT 11.4 INR 1.0 APTT 27.6 Sodium 139 Potassium 3.6 D Chloride 103 Carbon Dioxide 26.6 Anion Gap 9 BUN 10 Creatinine 0.5 L Estim Creat Clear Calc 139.2 eGFR > 60 BUN/Creatinine Ratio 20 Glucose 94 Calculated Osmolality 276 Calcium 9.5 Phosphorus 5.2 H Magnesium 1.9 Carcinoembryonic Ag 14.3 H CA 125 Antigen 1297.0 H Coccidioides IgG Ab Negative Coccidioides IgM Ab Negative Quality Measures Quality Measures none Assessment & Plan Assessment Current Active Medications: Generic Name Dose Route Start Last Admin Trade Name Freq PRN Reason Stop Dose Admin Acetaminophen 650 mg 03/07/24 15:18 Acetaminophen 325 Mg Tablet PO 04/06/24 15:17 Q6H PRN Fever >101.5 Acetaminophen 650 mg 03/07/24 15:18 Acetaminophen 325 Mg Tablet PO 04/06/24 15:17 Q6H PRN PAIN SCALE 1-3 (mild Hydrocodone Bitart/Acetaminophen 1 tab 03/07/24 15:18 Hydrocodone/Apap 10/325 Tab PO 03/12/24 15:17 Q4H PRN PAIN SCALE 4-6 (Moderate Albuterol/Ipratropium 3 ml 03/08/24 01:00 03/08/24 12:29 Albuterol/Ipratropium (Duoneb) Rt Stacey 3 Ml Nebu INH 04/07/24 00:59 Not Given Q6HRRT ANSELMO Hydromorphone HCl 1 mg 03/07/24 15:18 Hydromorphone Inj 2 Mg/Ml Vial IVP 03/12/24 15:17 Q4HR PRN PAIN Protocol Ceftriaxone Sodium/Dextrose 50 mls @ 100 mls/hr 03/08/24 09:00 03/08/24 08:17 Rocephin/D5w 1gm Iv Premix IV 03/15/24 08:59 100 mls/hr QDAY ANSELMO Administration Azithromycin 500 mg/ Sodium 250 mls @ 250 mls/hr 03/08/24 09:00 03/08/24 08:59 Chloride IV 03/15/24 08:59 250 mls/hr QDAY ANSELMO Administration Ondansetron HCl 4 mg 03/07/24 15:18 Ondansetron Inj 2 Mg/Ml Inj 2 Ml IV 04/06/24 15:17 Q6H PRN NAUSEA OR VOMITING Protocol Plan 43-year-old female without significant past medical history who presented to the ED with a chief complaint of severe thoracic pain, CT chest was done which showed: Extensive bilateral pneumonia, significant pericardial effusion, Recommend repeating this study with intravenous contrast to exclude mediastinal lymphadenopathy as well as to exclude pulmonary mass lesion in the left upper lobe. Moderate left mild right pleural fluid. Widespread osteolytic lesions, consider osseous metastatic disease, round cell tumor such as multiple myeloma. Consider PET CT scan follow-up for staging. Consider MRI thoracic cervical and lumbar spine post intravenous contrast follow-up to exclude spinal cord compression, as clinically warranted. Patient will be admitted for management of intractable pain, likely in the setting of malignancy. # Intractable pain #Suspected malignancy, unknown primary #Pleural effusion Likely in the setting of malignancy, unknown primary, refers 2 months dry cough and bone pain CT chest showed multiple osteolytic lesions, suggestive of malignancy, as well as pericardial and pleural effusion. 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 At this time patient is hemodynamically stable, speaking full sentences denies any signs of chest pain, shortness of breath or increased work of breathing. -CT chest without contrast ordered -F/u CT Biopsy results -Oncology Dr Curry consulted, appreciate recommendations -follow up fluid analysis and cytology -pain medications as needed #Pericardial effusion #Suspected heart failure -Per patient she has been told that she has heart failure, however she is unsure if she has had echocardiogram, patient refers she is unable to lay flat but mostly because of pain, she denies lower extremity edema -Follow-up echocardiogram -Cardiology consulted Dr. Mcdonnell, appreciate recommendations #Bilateral pneumonia -As evidenced on CT -Currently on room air, afebrile, no white count -Azithromycin and Rocephin Case discussed with my senior Dr. Magaña and my attending Dr. Emile Richard MD PGY-1 Disposition: Medsurg Fluids: None Feeding: Thrombo prophylaxis: Gastric Ulcer prophylaxis: CODE STATUS: Full code
[2024-03-08] MEDS: fentaNYL CIT INJ 50 mCg/ML AMP 2ML 75 MCG IVP (13:45)
--- NOTE | 2024-03-08 14:02 | XR_ITS ---
Examination: AP chest single view Technique one AP upright portable chest single view Exam date and time: March 08, 2024 1411 hours Comparison March 06, 2024 INDICATIONS: Post lung biopsy today FINDINGS: Severe opacification left hemithorax consistent with pneumonia and pleural fluid Suspicious for fluid capping the left lung with small left apical pneumothorax, less than 10% No pneumothorax depicted IMPRESSION: Suspicious for small left apical pneumothorax, less than 10% Extensive opacity left hemithorax most consistent with pneumonia and pleural fluid Recommend ultrasound left hemithorax to assess current extent of left pleural fluid
--- NOTE | 2024-03-08 14:34 | XR_ITS ---
Examination: CT chest, without intravenous contrast. Sagittal and coronal 2-D reconstructions. Exam date and time: March 08, 2024 0651 hrs. Indications: Shortness of breath today Pneumonic consolidation versus pulmonary mass left upper lobe CTDI:vol (mGy) 14.5 DLP: (mGycm) 463 Technique: Multiple 3.0 mm axial sections of the chest to been obtained. Bone and lung density settings are obtained. Sagittal and coronal 2-D reconstructions have been obtained. Low dose protocols were performed. One or more of the following dose reduction techniques were used; automated exposure control, adjustment of the mA and/or KV according to patient size, use of iterative reconstruction technique. Findings: Dense consolidation versus pulmonary mass left upper lobe Small anterior left pneumothorax less than 10% Atelectasis left mid and lower lung zone Moderate left mild to moderate right pleural fluid Pericardial effusion measuring up to 11 mm Significant vascular congestion Numerous subtle nodular densities throughout the right lung Splenomegaly AP dimension 14 cm No focal liver lesions Kidneys partially visualized no hydronephrosis Multiple osteolytic lesions in vertebral bodies and ribs Impression: Dense consolidation versus pulmonary mass left upper lobe Small anterior left pneumothorax less than 10% Miliary nodular pattern in the right lung Splenomegaly Multiple osteolytic lesions previously described Differential would include infectious etiology such as disseminated coccidioidomycosis, as well as round cell tumor such as multiple myeloma, as well as extensive metastatic pulmonary nodular disease with osseous metastatic disease
--- NOTE | 2024-03-08 14:54 | PC.NURSE ---
Patient transferred to Med Surg via gurney. Report given to CALLI Harrison at bedside. Patient A&O x4. VSS. Dressing clean, dry, and intact.
--- NOTE | 2024-03-08 15:25 | XR_ITS ---
Examination: AP chest single view Technique one AP portable upright chest single view Exam date and time: March 08, 2024 1528 hours INDICATIONS: Post lung biopsy FINDINGS: Suspicious for small left apical pneumothorax, less than 10% Bilateral pneumonia, severe and diffuse in the left lung Mild osteopenia IMPRESSION: Suspicious for small left apical pneumothorax, less than 10%
[2024-03-08] MEDS: ACETAMINOPHEN 325 MG TABLET 650 MG PO (17:26)
[2024-03-09] VITALS (11 sets, daily range): BP systolic 106–137; BP diastolic 73–90; PULSE 70–111; RESP 18–34; TEMP 36.1–36.6; O2SAT 93–100
[2024-03-09] MEDS: ALBUTEROL/IPRATROPIUM (Duoneb) RT SOL 3 ML NEBU INH ×4 (00:16→18:51)
[2024-03-09] MEDS: ACETAMINOPHEN 325 MG TABLET 650 MG PO (00:25)
--- NOTE | 2024-03-09 03:53 | PRELIM_ITS ---
CT scan of the chest without intravenous contrast (axial sections with sagittal and coronal reformats )March 08, 2024, 1851 hoursClinical History: Pleural effusionComparison: No prior study is availabl e for comparison.Findings:Left upper lobe mass measuring 7 x 5 x 8.9 cm with bronchial cut-off (axial image 56/160).There is a small right pleural effusion with compressive atelectasis.There is a modera te left pleural effusion with left lower lobe consolidation with air bronchogram.There is a small lef t pneumothorax.Innumerable 3-6 mm nodules in the right lung.The mediastinum demonstrates no evidence of mass or lymphadenopathy.The thoracic aorta is unremarkable.There is mild cardiomegaly.There is a s mall pericardial effusion.Coronary artery calcification is absent.Multiple lytic lesions in the bones .The visualized upper abdominal viscera are unremarkable on this noncontrast study.Impression:1. Left upper lobe mass. Recommend clinical correlation.2. Moderate left pleural effusion with left lower lo be consolidation with air bronchogram.3. Small left pneumothorax. Recommend clinical correlation and follow-up.4. Small right pleural effusion with compressive atelectasis.5. Small pericardial effusion. 6. Innumerable 3-6 mm nodules in the right lung, suggestive of metastasis.7. Multiple lytic lesions i n the bones, suggestive of metastasis.8. Other findings as described above.Discussion Details: The R esults were verbally communicated to Madhavi Bronson RN at 6:43 AM ET 06/04/2024. A call back numb er is provided to facilitate direct Physician to Physician communication Report Electronically Signed By: Addie Cheney 03/09/2024 3:52:50 AM [EST]
[2024-03-09 06:14] LABS: Basophils % (Auto) 0 % (0-2.5); Eosinophils # (Auto) 0.2 Thou/mm3 (0.0-0.5); Eosinophils % (Auto) 3 % (0-10); Hematocrit 32.4 % (36.0-46.0); Hemoglobin 10.8 g/dL (12.0-16.0); Immature Granulocytes % (Auto) 0 % (0-0); Immature Granulocytes Auto 0.03 Thou/mm3 (0.00-0.00); Lymphocytes # (Auto) 1.6 Thou/mm3 (1.0-4.8); Lymphocytes % (Auto) 21 % (10-50); Mean Corpuscular HGB Conc 33.3 g/dl (31.0-37.0); Mean Corpuscular Hemoglobin 29.8 pg (25.0-35.0); Mean Corpuscular Volume 90 fL (80-100); Monocytes # (Auto) 0.6 Thou/mm3 (0.0-0.8); Monocytes % (Auto) 8 % (0-12); Neutrophils # (Auto) 5.4 Thou/mm3 (1.8-7.7); Neutrophils % (Auto) 68 % (37-80); Nucleated Red Blood Cell % 0 /100 WBC (0); Platelet Count 320 Thou/mm3 (140-440); RDW Standard Deviation 40.6 fL (36.4-46.3); Red Blood Count 3.62 Miln/mm3 (4.00-5.20); White Blood Count 7.9 Thou/mm3 (3.6-11.0)
[2024-03-09 06:44] LABS: Partial Thromboplastin Time 30.6 Seconds (22.0-36.0); Prothrombin Time 11.3 Seconds (9.0-12.2)
[2024-03-09 06:51] LABS: Anion Gap 9 (7-16); BUN/Creatinine Ratio 18 Ratio (12-20); Blood Urea Nitrogen 11 mg/dL (9-23); Calcium 9.6 mg/dL (8.3-10.6); Carbon Dioxide 28.1 mMol/L (20.0-31.0); Chloride 102 mMol/L (98-107); Creatinine (Component) 0.6 mg/dL (0.6-1.3); Glucose 90 mg/dL (74-106); Magnesium 1.9 mg/dL (1.6-2.6); Osmolality,Calculated 276 (275-295); Phosphorous 5.9 mg/dL (2.4-5.1); Potassium 3.5 mMol/L (3.4-5.1); Sodium 139 mMol/L (136-145); eGFR > 60 See Note
[2024-03-09] MEDS: DEXAMETHASONE SOD PHOS INJ 4 MG/ML VIAL 3 MG IV ×3 (09:20→21:50)
[2024-03-09] MEDS: cefTRIAXone/D5w 1gm IV premix 50 ML IV (09:21)
[2024-03-09] MEDS: AZITHROMYCIN INJ 500 MG in SODIUM CHLORIDE 0.9% 250 ML 250 ML 250 MG IV (10:04)
[2024-03-09] MEDS: PANTOPRAZOLE 40 MG TABLET PO (12:19)
--- NOTE | 2024-03-09 13:11 | ESPR_ITS ---
<Statement entered by Jamie Baptiste MD - 03/12/24 14:24> 43-year-old female with no previous medical history who presented with shortness of breath and thoracic pain. Subsequently underwent CT chest with findings of bilateral pneumonia and significant pleural effusion. Plan to admit the patient for thoracentesis and underwent MRI of the brain with findings of multiple cerebral metastatic lesions and MRI cervical thoracic and lumbar spine also noted multiple metastatic lesions. Patient's presentation highly suspicious for metastatic disease with underlining oncologic process either being in breast or uterine. Continue to monitor closely and plan to start patient on dexamethasone and appreciate radiation oncology input.I reviewed above note and agree with findings and plans. I have also personally examined the patient with medicine team and went over assessment and plan with medical team including hr internship and resident physician. Documentation for date of: 03/09/24 Subjective Subjective Interval history: Patient seen today at the bedside fine awake, alert, oriented x 3. No overnight events reported. States no active complaints at this time. Vital signs stable at this time. As far as labs go tumor markers CEA 14.3 and CA125 1297. Brain MRI showed multiple cerebral metastatic lesions. Spinal MRIs show multiple metastatic lesions. Immunofixation pending at this time. Will likely need to see oncology as outpatient. Anticipate discharge in the next 24 to 48 hours. Exam Vital Signs Temp Pulse Resp BP Pulse Ox O2 Del Method O2 Flow Rate 97.6 F 81 20 106/73 100 Room Air 2 03/09/24 08:00 03/09/24 12:33 03/09/24 12:33 03/09/24 08:00 03/09/24 12:33 03/09/24 08:00 03/09/24 12:33 Narrative Exam Physical Exam GENERAL: NAD, AAOx3 HEENT: Moist mucosa. Eyes open, symmetrical, & clear CARDIO: Heart RRR, no obvious murmurs PULM: No noted coughing/dyspnea CTA B/L, no R/W/R GI: Abdomen soft, nondistended, no pain on palpation. BSx4 SKIN/MSK/EXT: No wounds/rashes/edema/amputations, no pain on palpation. Pedal pulses present B/L NEURO: AAOx3, no focal neuro deficits, able to move all 4 extremities Objective Labs 03/09/24 04:47 03/09/24 04:47 Labs: Laboratory Results - last 24 hr 03/09/24 04:47 WBC 7.9 RBC 3.62 L Hgb 10.8 L Hct 32.4 L MCV 90 MCH 29.8 MCHC 33.3 RDW Std Deviation 40.6 Plt Count 320 Neut % (Auto) 68 Lymph % (Auto) 21 Baxter % (Auto) 8 Eos % (Auto) 3 Baso % (Auto) 0 Neut # (Auto) 5.4 Lymph # (Auto) 1.6 Baxter # (Auto) 0.6 Eos # (Auto) 0.2 Baso # (Auto) 0.0 Immature Gran # (Auto) 0.03 H Absolute Nucleated RBC 0.00 Immature Gran % 0 Nucleated RBC % 0 PT 11.3 INR 1.0 APTT 30.6 Sodium 139 Potassium 3.5 Chloride 102 Carbon Dioxide 28.1 Anion Gap 9 BUN 11 Creatinine 0.6 Estim Creat Clear Calc 116.0 eGFR > 60 BUN/Creatinine Ratio 18 Glucose 90 Calculated Osmolality 276 Calcium 9.6 Phosphorus 5.9 H Magnesium 1.9 Quality Measures Quality Measures none Assessment & Plan Assessment Current Active Medications: Generic Name Dose Route Start Last Admin Trade Name Freq PRN Reason Stop Dose Admin Acetaminophen 650 mg 03/07/24 15:18 Acetaminophen 325 Mg Tablet PO 04/06/24 15:17 Q6H PRN Fever >101.5 Acetaminophen 650 mg 03/07/24 15:18 03/09/24 00:25 Acetaminophen 325 Mg Tablet PO 04/06/24 15:17 650 mg Q6H PRN Administration PAIN SCALE 1-3 (mild Hydrocodone Bitart/Acetaminophen 1 tab 03/07/24 15:18 Hydrocodone/Apap 10/325 Tab PO 03/12/24 15:17 Q4H PRN PAIN SCALE 4-6 (Moderate Albuterol/Ipratropium 3 ml 03/08/24 01:00 03/09/24 12:32 Albuterol/Ipratropium (Duoneb) Rt Stacey 3 Ml Nebu INH 04/07/24 00:59 3 ml Q6HRRT ANSELMO Administration Dexamethasone Sodium Phosphate 3 mg 03/09/24 09:00 03/09/24 09:20 Dexamethasone Sod Phos Inj 4 Mg/Ml Vial IV 04/08/24 08:59 3 mg TID ANSELMO Administration Protocol Hydromorphone HCl 1 mg 03/07/24 15:18 Hydromorphone Inj 2 Mg/Ml Vial IVP 03/12/24 15:17 Q4HR PRN PAIN Protocol Ceftriaxone Sodium/Dextrose 50 mls @ 100 mls/hr 03/08/24 09:00 03/09/24 09:21 Rocephin/D5w 1gm Iv Premix IV 03/15/24 08:59 100 mls/hr QDAY ANSELMO Administration Azithromycin 500 mg/ Sodium 250 mls @ 250 mls/hr 03/08/24 09:00 03/09/24 10:04 Chloride IV 03/15/24 08:59 250 mls/hr QDAY ANSELMO Administration Ondansetron HCl 4 mg 03/07/24 15:18 Ondansetron Inj 2 Mg/Ml Inj 2 Ml IV 04/06/24 15:17 Q6H PRN NAUSEA OR VOMITING Protocol Pantoprazole Sodium 40 mg 03/09/24 11:45 03/09/24 12:19 Pantoprazole 40 Mg Tablet PO 04/08/24 11:44 40 mg QDAY ANSELMO Administration Plan 43-year-old female without significant past medical history who presented to the ED with a chief complaint of severe thoracic pain, CT chest was done which showed: Extensive bilateral pneumonia, significant pericardial effusion, Recommend repeating this study with intravenous contrast to exclude mediastinal lymphadenopathy as well as to exclude pulmonary mass lesion in the left upper lobe. Moderate left mild right pleural fluid. Widespread osteolytic lesions, consider osseous metastatic disease, round cell tumor such as multiple myeloma. Consider PET CT scan follow-up for staging. Consider MRI thoracic cervical and lumbar spine post intravenous contrast follow-up to exclude spinal cord compression, as clinically warranted. Patient will be admitted for management of intractable pain, likely in the setting of malignancy. #Intractable pain #Suspected malignancy, unknown primary #Pleural effusion Likely in the setting of malignancy, unknown primary, refers 2 months dry cough and bone pain CT chest showed multiple osteolytic lesions, suggestive of malignancy, as well as pericardial and pleural effusion. 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 At this time patient is hemodynamically stable, speaking full sentences denies any signs of chest pain, shortness of breath or increased work of breathing. Brain MRI showed multiple cerebral metastatic lesions. Spinal MRIs cervical, thoracic, lumbar show multiple metastatic lesions Tumor markers were ordered and CEA 14.3, CA125: 1297 -Follow-up CA 19-9 -F/u CT Biopsy results -Oncology Dr Curry consulted, appreciate recommendations -Started on dexamethasone 3 mg IV 3 times daily -follow up fluid analysis and cytology -pain medications as needed #Pericardial effusion #Suspected heart failure Per patient she has been told that she has heart failure, however she is unsure if she has had echocardiogram, patient refers she is unable to lay flat but mostly because of pain, she denies lower extremity edema Echo showed Normal LV size and function. Estimated EF 55-60% Normal RV size and function. There is a small circumferential pericardial effusion. Not enough to warrant intervention. No evidence of cardiac tampoande. Pleural effusion present. -Cardiology consulted Dr. Mcdonnell, appreciate recommendations #Bilateral pneumonia As evidenced on CT Currently on room air, afebrile, no white count -Continue azithromycin and ceftriaxone Case discussed with my attending Dr. Emile Richard MD PGY-1 Disposition: Medsurg, anticipate discharge in the next 24 to 48 hours Fluids: None Feeding: Regular Thrombo prophylaxis: Lovenox Gastric Ulcer prophylaxis: Pantoprazole CODE STATUS: Full code
[2024-03-09] MEDS: ENOXAPARIN SOD INJ 40 MG/0.4 ML SYRINGE SC (14:40)
--- NOTE | 2024-03-09 14:50 | PC.NURSE ---
O2 test:Room air at rest: SpO2: 89% Room Air with Exercise:SpO2:79% Spo2% on O2: 93% on 2L
[2024-03-10] VITALS (8 sets, daily range): BP systolic 103–137; BP diastolic 69–87; PULSE 73–94; RESP 23–38; TEMP 36.2–36.8; O2SAT 92–100
--- NOTE | 2024-03-10 00:16 | XR_ITS ---
Examination: AP chest single view Technique one AP portable upright chest single view Exam date and time: March 10, 2024 0027 hrs. Comparison March 06, 2024 Indications: Onset hemoptysis today. Findings: Worsening consolidation in the left hemithorax Enlarged cardiac contour with prominent vascular congestion Prominent osteopenia Impression: Severe worsening left lung pneumonia Mild heart failure Consider ultrasound left hemithorax to exclude left pleural fluid
[2024-03-10] MEDS: ALBUTEROL/IPRATROPIUM (Duoneb) RT SOL 3 ML NEBU INH ×2 (00:39→12:06)
[2024-03-10] MEDS: DEXAMETHASONE SOD PHOS INJ 4 MG/ML VIAL 3 MG IV ×2 (05:35→14:01)
[2024-03-10 05:57] LABS: Basophils % (Auto) 0 % (0-2.5); Eosinophils % (Auto) 0 % (0-10); Hematocrit 32.4 % (36.0-46.0); Hemoglobin 10.8 g/dL (12.0-16.0); Immature Granulocytes % (Auto) 1 % (0-0); Immature Granulocytes Auto 0.06 Thou/mm3 (0.00-0.00); Lymphocytes # (Auto) 1.3 Thou/mm3 (1.0-4.8); Lymphocytes % (Auto) 14 % (10-50); Mean Corpuscular HGB Conc 33.3 g/dl (31.0-37.0); Mean Corpuscular Hemoglobin 29.6 pg (25.0-35.0); Mean Corpuscular Volume 89 fL (80-100); Monocytes # (Auto) 0.3 Thou/mm3 (0.0-0.8); Monocytes % (Auto) 4 % (0-12); Neutrophils # (Auto) 7.8 Thou/mm3 (1.8-7.7); Neutrophils % (Auto) 82 % (37-80); Nucleated Red Blood Cell % 0 /100 WBC (0); Platelet Count 363 Thou/mm3 (140-440); RDW Standard Deviation 39.8 fL (36.4-46.3); Red Blood Count 3.65 Miln/mm3 (4.00-5.20); White Blood Count 9.4 Thou/mm3 (3.6-11.0)
[2024-03-10 06:18] LABS: Anion Gap 10 (7-16); BUN/Creatinine Ratio 24 Ratio (12-20); Blood Urea Nitrogen 12 mg/dL (9-23); Calcium 9.7 mg/dL (8.3-10.6); Carbon Dioxide 25.7 mMol/L (20.0-31.0); Chloride 103 mMol/L (98-107); Creatinine (Component) 0.5 mg/dL (0.6-1.3); Estimated Creatinine Clearance 139.2 mL/min (>60); Glucose 120 mg/dL (74-106); Magnesium 2.1 mg/dL (1.6-2.6); Osmolality,Calculated 278 (275-295); Phosphorous 4.8 mg/dL (2.4-5.1); Potassium 3.8 mMol/L (3.4-5.1); Sodium 139 mMol/L (136-145); eGFR > 60 See Note
[2024-03-10] MEDS: ENOXAPARIN SOD INJ 40 MG/0.4 ML SYRINGE SC (09:06)
[2024-03-10] MEDS: cefTRIAXone/D5w 1gm IV premix 50 ML IV (09:06)
[2024-03-10] MEDS: PANTOPRAZOLE 40 MG TABLET PO (09:07)
[2024-03-10] MEDS: AZITHROMYCIN 250 MG TABLET 500 MG PO (09:07)
--- NOTE | 2024-03-10 09:18 | XR_ITS ---
Examination: Ultrasound right hemithorax Ultrasound left hemithorax Exam date and time: March 10, 2024 at 1152 hrs. Indications: Shortness of breath 4 days, chest x-ray today left pleural fluid Technique And Findings: Grayscale sonographic images right and left hemithoraces Mild left pleural effusion No right pleural fluid Impression: Mild left pleural effusion
--- NOTE | 2024-03-10 14:29 | PC.SS ---
Bridge Teacher (ALEKS) Betsy informed by GME Resident Dr. Baird that patient needs oxygen therapy for discharge. SW met with patient [id number] to confirm address and phone number. SW ordered oxygen through [facility] and will be delivered at bedside. Patient reported that she has an appointment with her PCP, Fili Rodrigues, tomorrow, 03/11/2024 at 1100 AM. Patient does not require transportation.
--- NOTE | 2024-03-10 17:24 | ESDS_ITS ---
<Statement entered by Jamie Baptiste MD - 03/12/24 14:25> 43-year-old female with no previous medical history who presented with shortness of breath and thoracic pain. Subsequently underwent CT chest with findings of bilateral pneumonia and significant pleural effusion. Plan to admit the patient for thoracentesis and underwent MRI of the brain with findings of multiple cerebral metastatic lesions and MRI cervical thoracic and lumbar spine also noted multiple metastatic lesions. Patient's presentation highly suspicious for metastatic disease with underlining oncologic process either being in breast or uterine. Continue to monitor closely and plan to start patient on dexamethasone and appreciate radiation oncology input.as of now, plan to discharge the patient and updated her that she will need to follow-up with her primary care physician and PCP to obtain pathology report and will need outpatient referral to radiation oncology/oncology service. I updated her about her plan and she is in agreement and stated that she does have an appointment tomorrow with her primary care physician and she understands that she needs to see oncology as soon as possible as there is high suspicion for metastatic cancer and likely being advanced. I reviewed above note and agree with findings and plans. I have also personally examined the patient with medicine team and went over assessment and plan with medical team including campus recruiting internship and resident physician. Planned Discharge Date 03/10/24 DS: Providers Provider Date of admission: 03/07/24 15:18 Primary care physician: Physician No Primary/Family Admitting Provider: Jamie Baptiste MD Attending Provider on Admission: Jamie Baptiste MD Consults: 03/07/24 15:21 Consult to Oncology Routine Comment: suspected malignancy Consulting Provider: Lio Curry 03/07/24 15:22 Consult to Cardiology Routine Comment: pericardial effusion Consulting Provider: dIa Mcdonnell Attending Provider on DC: Jamie Baptiste MD Discharging Provider: Jaime Baird MD DS: Diagnosis Problem List Completed Was Problem List Reviewed/Reconciled?: Yes Hospital Course Hospital Course Hospital course: The patient is a 42-year-old female with no significant past medical history presented to ER with chief complaint of severe thoracic pain, initial chest imaging showed severe bilateral pneumonia and minimal pericardial effusion, cardiology was consulted who preferred no immediate intervention and continue observation. Also found to have pleural effusion and lung mass, with multiple osteolytic lesions in the thoracic vertebra. Thoracentesis was done as well as CT-guided biopsy, pending histopathology results and cytology. Radiation?oncologist Dr. Curry was consulted who followed the patient, MRI thoracic cervical and lumbar spinal cord showed multiple metastatic lesions, brain MRI showed metastatic lesions in the brain. Attempts to schedule the patient with oncologist outpatient in [place] were unsuccessful due to patient's insurance not covering. The patient will likely have to go through her primary care provider and get an oncologist referral. Post CT biopsy, patient had minimal pneumothorax less than 10%, and pleural effusion, which stayed stable on repeated imaging. Patient saturating well on 2 L nasal cannula oxygen, patient discharged home with oxygen as she has upcoming appointment with her primary care physician tomorrow. Patient is being discharged on 2 weeks of oral antibiotics. She was given detailed instructions about care plan and strict instructions to return to the emergency room in case of respiratory distress or any other worsening symptoms. Plan of care discussed with my attending Dr. Emile Baird pgy 2 #Intractable pain #Suspected malignancy, unknown primary #Pleural effusion Likely in the setting of malignancy, unknown primary, refers 2 months dry cough and bone pain CT chest showed multiple osteolytic lesions, suggestive of malignancy, as well as pericardial and pleural effusion. 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 At this time patient is hemodynamically stable, speaking full sentences denies any signs of chest pain, shortness of breath or increased work of breathing. Brain MRI showed multiple cerebral metastatic lesions. Spinal MRIs cervical, thoracic, lumbar show multiple metastatic lesions Tumor markers were ordered and CEA 14.3, CA125: 1297 -Follow-up CA 19-9 -F/u CT Biopsy results -Oncology Dr Curry consulted, appreciate recommendations -Started on dexamethasone 3 mg IV 3 times daily -follow up fluid analysis and cytology -pain medications as needed #Pericardial effusion #Suspected heart failure Per patient she has been told that she has heart failure, however she is unsure if she has had echocardiogram, patient refers she is unable to lay flat but mostly because of pain, she denies lower extremity edema Echo showed Normal LV size and function. Estimated EF 55-60% Normal RV size and function. There is a small circumferential pericardial effusion. Not enough to warrant intervention. No evidence of cardiac tampoande. Pleural effusion present. -Cardiology consulted Dr. Mcdonnell, appreciate recommendations #Bilateral pneumonia As evidenced on CT Currently on room air, afebrile, no white count -Continue azithromycin and ceftriaxone Time Spent with Patient Time attestation: Total time spent providing and/or coordinating discharge services:30 min Exam Vital Signs Temp Pulse Resp BP Pulse Ox O2 Del Method O2 Flow Rate 98.2 F 82 23 H 125/78 100 Nasal Cannula 2 03/10/24 12:00 03/10/24 12:07 03/10/24 12:07 03/10/24 12:00 03/10/24 12:07 03/10/24 12:00 03/10/24 12:07 Narrative Exam Physical Exam GENERAL: NAD, AAOx3, saturating well on 2 L of oxygen. HEENT: Moist mucosa. Eyes open, symmetrical, & clear CARDIO: Heart RRR, no obvious murmurs PULM: Coarse crackles on auscultation chest left side. GI: Abdomen soft, nondistended, no pain on palpation. BSx4 SKIN/MSK/EXT: Noted multiple moles all over her skin, no wounds/rashes/edema/amputations, no pain on palpation. Pedal pulses present B/L NEURO: AAOx3, no focal neuro deficits, able to move all 4 extremities Discharge Plan Plan Patient Disposition: HOME (Self Care) Care Plan Goals: Recommend to continue taking antibiotics for 14 more days, Augmentin and doxycyline. Recommend taking Lenox 10/325 for severe pain. Take [id number] Tylenol for mild to moderate pain. Recommend following up urgently oncologist, you may need referral from your primary doctor. Your primary doctor can request medical records including chest imaging and biopsy results from medical records department of [facility]. You will be provided with oxygen on discharge to help with respiratory distress, in case of worsening symptoms, please return to the emergency room. Prescriptions/Referrals Prescriptions/Med Rec: New hydrocodone-acetaminophen 10-325 mg Tablet 1 tab PO TID MDD 3 pills 5 Days Qty: 15 0RF doxycycline hyclate 100 mg capsule 100 mg PO BID 14 Days Qty: 28 0RF amoxicillin-pot clavulanate 875-125 mg tablet 1 tab PO BID 14 Days Qty: 28 0RF Referrals: No Primary/Family,Physician [Primary Care Provider] - Patient/Caregiver Discharge Instructions Education Materials: Pleural Effusion, Thoracentesis Dc, Cancer Overview Print Language: Finnish Stand Alone Forms: Renetta Award Info., Patient Portal Info Letter Discharge Order Discharge Orders: Discharge (Routine); Ordered 03/10/24 Ordered By: Jaime Baird Quality Discharge Quality Measures VTE prophylaxis
[2024-03-11 06:51] LABS: Legionella Ag, EIA, Urine* NOT DETECTED
[2024-03-12 06:34] LABS: CA 19-9 Antigen* 546 U/mL (<34)
[2024-03-17 15:37] LABS: Albumin 3.3 g/dL (3.8-4.8); Alpha-1-Globulin 0.5 g/dL (0.2-0.3); Alpha-2-Globulin 0.9 g/dL (0.5-0.9); Beta-1-Globulin 0.5 g/dL (0.4-0.6); Beta-2-globulin 0.6 g/dL (0.2-0.5); Gamma Globulin 1.1 g/dL (0.8-1.7)
[2024-03-18 06:59] LABS: Protein, total, serum 6.9 g/dL (6.1-8.1)
== END 2024-03-10 16:22 | disposition home or self-care (01) | DRG 343 ==
LOC: SERX 03-07 13:42 → SERHOLD 03-07 15:36 → S3NX 03-07 19:51
PROVIDERS: Physician Assistant; Radiology Diagnostic Radiology; Radiology Therapeutic Radiology; Student in an Organized Health Care Education/Training Program; Admitting Provider Internal Medicine; Emergency Provider Emergency Medicine; Visit Provider Internal Medicine
DX: C79.51 Secondary malignant neoplasm of bone (principal); I31.39 Other pericardial effusion (noninflammatory); J18.9 Pneumonia, unspecified organism; C78.02 Secondary malignant neoplasm of left lung; C79.31 Secondary malignant neoplasm of brain
CPT/HCPCS: 36415; 70552; 71045; 71046; 71250; 71260; 72142; 72147; 72149; 74177; 76999; 77012; 80048; 80053; 81001; 82150; 82378; 82945; 83605; 83615; 83735; 83880; 84100; 84145; 84155; 84157; 84165; 84484; 85025; 85610; 85730; 86301; 86304; 86331; 86334; 86635; 87040; 87070; 87075; 87081; 87086; 87205; 87400; 87449; 87811; 89051; 93005; 93225; 93306; 94640; 94664; 94667; 96365; 96367; 99285; A4649; A9270; A9579; J0456; J0696; J1100; J1650; J3010; J7050; Q9967